=== PATIENT | female | born 1945 | race Caucasian/White ===

== ENCOUNTER → 2017-06-05 | Outpatient (CLI) | payer MEDICARE ==
[~2017-06-05] MED LIST: DESIPRAMINE HCL10 MG PO; KEFLEX500 MG PO; MELOXICAN PO; VALIUM5 MG; Z PREMPRO PO; Z.1.DIOVAN HCT 1601 PO; [UNRECOGNIZED DRUG - OTHER] PO; [UNRECOGNIZED DRUG - OTHER] PO
--- NOTE | 2017-06-14 16:31 | Diagnostic Imaging Report ---
#[id number] - MGSCRBIL #BILATERAL DIGITAL SCREENING MAMMOGRAM WITH CAD: 06/05/2017 CLINICAL: Routine screening. Comparison is made to exams dated: 03/15/2016 mammogram and 01/11/2015 mammogram - [facility]. Current study contains 4 films. There are scattered fibroglandular elements in both breasts. Current study was also evaluated with a Computer Aided Detection (CAD) system. There are benign calcifications in both breasts. There also are benign lymph nodes in both breasts. No significant masses, calcifications, or other findings are seen in either breast. There has been no significant interval change. IMPRESSION: BENIGN There is no mammographic evidence of malignancy. A 1 year screening mammogram is recommended. The patient will be notified by letter of the results. Jose Roberto guthrie/gideon:06/14/2017 08:41:08 Metal Molder: Alicia HARGROVE)(Néstor), [facility] letter sent: Compared to Prior B9 Mammogram BI-RADS: 2 Benign
== END ==
LOC: MAMMO 09:06
PROVIDERS: ATTEND Family Medicine
DX: Z12.31 Encounter for screening mammogram for malignant neoplasm of breast (principal)
CPT/HCPCS: 77067

== ENCOUNTER → 2018-02-21 | Outpatient (CLI) | payer MEDICARE ==
--- NOTE | 2018-02-21 11:35 | Diagnostic Imaging Report ---
EXAM: CT Chest WITHOUT contrast INDICATION: Shortness of breath COMPARISON: None. TECHNIQUE: The Chest was scanned utilizing a multidetector helical scanner without the use of IV contrast. Coronal and sagittal reformations were obtained. IV CONTRAST: None COMPLICATIONS: None RADIATION DOSE: Total DLP: 440 mGy*cm Estimated effective dose: (DLP x 0.015 x size factor) mSv CTDIvol has been reviewed. It is below the limits set by the Radiation Protocol Committee (RPC). Appropriate CT dose reduction techniques were utilized. FINDINGS: Lines and Tubes: None. Lower Neck: No acute findings. Heart and Great Vessels: The aorta and main pulmonary artery measure 35 and 25 mm. respectively. No pericardial effusion. No significant coronary artery vascular calcifications. Normal origin. There is a coarse/bulky calcification along the inferior aspect of the heart in the region of the right atrioventricular junction, nonspecific, but statistically benign. AP diameter left atrium 51 mm. Lymph Nodes: No enlarged mediastinal lymph nodes present. The hilar regions are sub-optimally evaluated given lack of IV contrast. Lungs: No pneumothorax or pleural effusion present. Moderate respiratory motion in the lung bases limits evaluation. Mild groundglass opacities medial aspect right lower lobe adjacent to prominent osteophytes consistent with benign friction phenomenon. Minimal atelectasis/scarring right middle lobe and lingula. There are a few tiny pleural nodules statistically benign. Trachea and central bronchi are unremarkable. Upper abdomen: There is questionable increased density of the liver, which can be seen in the setting of chronic liver disease or amiodarone toxicity. 13 mm partially peripherally calcified splenic artery aneurysm present. Bones and Soft Tissues: Moderate degenerative changes spine. IMPRESSION: 1. No definite acute finding within the chest. 2. Prominent left atrium. Echocardiogram could be obtained for further evaluation. 3. Increased density of the liver as detailed above. 4. Please see above for full details/other findings. Signed by: Dr. Cj Gómez MD on 02/21/2018 11:32 AM
== END ==
LOC: RESP 10:30
PROVIDERS: ATTEND Internal Medicine
DX: R06.09 Other forms of dyspnea (principal)
CPT/HCPCS: 71250; 94060; 94727; 94729

== ENCOUNTER → 2018-02-24 | Outpatient (CLI) | payer MEDICARE ==
[~2018-02-24] MED LIST changes: +IOPAMIDOL 370 MG/ML 200 ML INFUS..BTL INJ ONE; +SODIUM CHLORIDE 0.9% 100 ML 100 ML ONE
[2018-02-24 10:12] LABS: BLOOD UREA NITROGEN 21 mg/dL (7-26); BUN/CREATININE RATIO 24 (6-25); CREATININE, SERUM 0.88 mg/dL (0.57-1.11); EST GLOMERULAR FILTRATION RATE > 60 ML/MIN (60-)
--- NOTE | 2018-02-24 12:35 | Diagnostic Imaging Report ---
ABDOMINOPELVIC CT WITH CTA RUNOFF PROTOCOL WITH IV CONTRAST. 3D post-processing of the images was performed, and the post-processed images were used in interpretation. COMPARISON: CT Abdomen/Pelvis 07/24/2010 RADIATION DOSE: Dose length product: 737.6 mGycm CONTRAST: 100 cc of Isovue 370. FINDINGS: VESSELS: No significant atherosclerotic changes in the abdominal aorta or branch vessels. There is no evidence of a flap within the aorta to suggest a dissection. No evidence of abdominal aortic aneurysm. The abdominal aorta at the diaphragmatic hiatus measures up to 1.8 cm, suprarenal abdominal aorta measures 1.6 cm, and infrarenal abdominal aorta measures 1.4 cm. The celiac artery, superior mesenteric artery, and inferior mesenteric artery are patent. There is a 1.2 cm distal left splenic artery aneurysm. There is a single right renal artery and a single left renal artery, both of which are patent. Bilateral lower extremities: The bilateral common femoral arteries, superficial femoral arteries, and right popliteal artery are patent. Limited evaluation of the left popliteal artery secondary to streak artifact from left knee arthroplasty. Patent bilateral three-vessel runoff to the level of the ankle. The vessels are not well visualized beyond the ankle into the foot. No atherosclerotic changes are visualized. NON VASCULAR FINDINGS: LINES and TUBES: None. LOWER THORAX: Unchanged 3 mm subpleural right middle lobe nodular opacity since 2010. Again noted is a coarse calcification along the inferior aspect of the heart. Left atrial enlargement measuring up to 4.7 cm. HEPATOBILIARY: No focal hepatic lesions. No biliary ductal dilation. GALLBLADDER: No radio-opaque stones or sludge. No wall thickening. SPLEEN: No splenomegaly. PANCREAS: No focal masses or ductal dilatation. ADRENALS: No adrenal nodules KIDNEYS/URETERS: Kidneys enhance symmetrically. No hydronephrosis. No cystic or solid mass lesions. No stones. GI TRACT: No abnormal distention, wall thickening, or evidence of bowel obstruction. LYMPH NODES: No lymphadenopathy. PERITONEUM / RETROPERITONEUM: No free air or fluid. 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 No acute osseous abnormality. Severe degenerative changes of the left hip. Moderate lumbar spine degenerative changes. Grade 1 anterolisthesis of L4 on L5. IMPRESSION: Patent vasculature of the abdomen and bilateral lower extremities. Non-visualization of bilateral runoff vessels below the lower leg/ankle, which may represent phase of contrast. No atherosclerotic changes are visualized. No evidence of aortic dissection or aneurysm. A 1.2 cm distal splenic artery aneurysm. Follow-up abdominal CTA is suggested in 12 months to assess for stability. Signed by: Dr. Jeannie Lin MD on 02/24/2018 12:32 PM
== END ==
LOC: CT 09:21
PROVIDERS: ATTEND Internal Medicine Interventional Cardiology
DX: I73.9 Peripheral vascular disease, unspecified (principal)
CPT/HCPCS: 36415; 75635; 82565; 84520; Q9967

== ENCOUNTER → 2018-07-10 | Outpatient (CLI) | payer MEDICARE ==
[~2018-07-10] MED LIST changes: -IOPAMIDOL 370 MG/ML 200 ML INFUS..BTL INJ ONE; -SODIUM CHLORIDE 0.9% 100 ML 100 ML ONE
== END ==
LOC: MAMMO 07:59
PROVIDERS: ATTEND Family Medicine
DX: Z12.31 Encounter for screening mammogram for malignant neoplasm of breast (principal)
CPT/HCPCS: 77067

== ENCOUNTER → 2018-08-22 | Outpatient (CLI) | payer MEDICARE ==
--- NOTE | 2018-08-25 08:27 | Diagnostic Imaging Report ---
#[id number] - USBRELIMLT ULTRASOUND OF THE LEFT BREAST : 08/22/2018 Comparison is made to exams dated: 08/22/2018 mammogram and 07/10/2018 mammogram - [facility]. Color flow and real-time ultrasound were performed on the left breast with scanning from 9 o'clock to 3 o'clock. -No cystic or solid mass is identified. IMPRESSION: NEGATIVE There is no sonographic evidence of malignancy. A 1 year screening mammogram is recommended. Jose Roberto Grant Jr., D.O. cw/:08/22/2018 10:05:24 Engineer Process: Andreina Corcoran RDMS, [facility] letter sent: Normal Exam Ultrasound BI-RADS: 1 Negative
--- NOTE | 2018-08-25 08:27 | Diagnostic Imaging Report ---
#[id number] - MGDXLT #UNILATERAL LEFT DIGITAL DIAGNOSTIC MAMMOGRAM WITH SPOT COMPRESSION: 08/22/2018 Comparison is made to exams dated: 07/10/2018 mammogram and 06/05/2017 mammogram - [facility]. Current study contains 3 films. There are scattered fibroglandular elements in the left breast. The possible nodule at 12 o'clock appears to persist on the CC view. For this reason, targeted ultrasound is recommended and will be performed today. No significant masses, calcifications, or other findings are seen in the breast. IMPRESSION: INCOMPLETE: NEEDS ADDITIONAL IMAGING EVALUATION Ill defined nodule appears to persist on the CC view. Ultrasound is recommended and will follow this study. Jose Roberto Grant Jr., D.O. cw/:08/22/2018 10:12:29 Customer Service Leader: Alicia TOMAS(Ernie)(Néstor), [facility] letter sent: Additional Imaging Needed Mammogram BI-RADS: 0 Indeterminate
== END ==
LOC: MAMMO 07:55
PROVIDERS: ATTEND Family Medicine

== ENCOUNTER → 2019-11-06 | Outpatient (CLI) | payer MEDICARE | LOC: MAMMO 08:46 | PROVIDERS: ATTEND Family Medicine | DX: Z12.31 Encounter for screening mammogram for malignant neoplasm of breast (principal) | CPT/HCPCS: 77067 ==

== ENCOUNTER → 2020-12-08 | Outpatient (CLI) | payer MEDICARE | LOC: MAMMO 12:29 | PROVIDERS: ATTEND Family Medicine | DX: Z12.31 Encounter for screening mammogram for malignant neoplasm of breast (principal) | CPT/HCPCS: 77066; 77067 ==

== ENCOUNTER → 2021-12-19 | Outpatient (CLI) | payer MEDICARE | LOC: MAMMO 10:08 | PROVIDERS: ATTEND Family Medicine | DX: Z12.31 Encounter for screening mammogram for malignant neoplasm of breast (principal) | CPT/HCPCS: 77067 ==

== ENCOUNTER → 2022-01-04 | Outpatient (CLI) | payer MEDICARE | LOC: MAMMO 10:01 | PROVIDERS: ATTEND Family Medicine | DX: R92.8 Other abnormal and inconclusive findings on diagnostic imaging of breast (principal) ==

== ENCOUNTER → 2022-03-12 | Day surgery (SDC) | payer MEDICARE ==
[2022-03-06 09:51] LABS: BASOPHILS % 0.6 % (0.0-1.0); EOSINOPHILS # (AUTO) 0.1 (0.0-0.4); EOSINOPHILS % 2.2 % (0.0-6.0); HEMATOCRIT 37.2 % (34.2-44.1); HEMOGLOBIN 11.3 g/dL (12.0-16.0); LYMPHOCYTES # (AUTO) 1.5 (1.0-3.2); LYMPHOCYTES % 27.3 % (18.0-39.1); MEAN CORPUSCULAR HGB CONC 30.4 g/dL (31-35); MEAN CORPUSCULAR VOLUME 92.3 fL (81-99); MONOCYTES # (AUTO) 0.4 (0.2-0.8); MONOCYTES % 7.4 % (4.4-11.3); NEUTROPHILS # (AUTO) 3.4 (2.1-6.9); NEUTROPHILS % 62.1 % (38.7-80.0); PLATELET COUNT 272 x10e3/uL (140-360); RED BLOOD COUNT 4.03 x10e6/uL (3.6-5.1); RED CELL DISTRIBUTION WIDTH 13.3 % (11.7-14.4)
[~2022-03-12] MED LIST changes: +ASPIRIN81 MG PO; +DAILY VITAMIN1 EAC4 PO; +ELIQUIS5 MG PO; +ENTRESTO 24 MG1 EACH PO; +EYE VITAMIN PO; +FUROSEMIDE40 MG PO; +LIDOCAINE HCL 2% LOCAL INJ 5 ML SDV VIAL INJ ONE; +METOCLOPRAMIDE HCL 10 MG/2ML VIAL ONE; +PROPOFOL IV EMULSION 10 MG/ML 20 ML VIAL ONE
[2022-03-12 09:45] VITALS: BP 148/73
== END | disposition home or self-care (01) ==
LOC: OR 08:17
PROVIDERS: ATTEND Internal Medicine Gastroenterology
DX: R15.2 Fecal urgency (principal); K63.3 Ulcer of intestine; K59.09 Other constipation; K62.89 Other specified diseases of anus and rectum; K57.30 Diverticulosis of large intestine without perforation or abscess without bleeding; K64.8 Other hemorrhoids; Z71.3 Dietary counseling and surveillance; I48.91 Unspecified atrial fibrillation; I44.0 Atrioventricular block, first degree; I10 Essential (primary) hypertension; Z88.2 Allergy status to sulfonamides; Z01.810 Encounter for preprocedural cardiovascular examination; Z01.812 Encounter for preprocedural laboratory examination; Z79.02 Long term (current) use of antithrombotics/antiplatelets; Z79.82 Long term (current) use of aspirin; Z79.899 Other long term (current) drug therapy; Z68.27 Body mass index [BMI] 27.0-27.9, adult
CPT/HCPCS: 36415; 45380; 83630; 83993; 85025; 86140; 87045; 87177; 87324; 87328; 87449; 88305; 93005; J2001; J2704; J2765; 45378

== ENCOUNTER → 2023-01-03 | Day surgery (SDC) | payer MEDICARE ==
[2023-01-01 14:17] LABS: BASOPHILS % 0.5 % (0.0-1.0); EOSINOPHILS # (AUTO) 0.1 (0.0-0.4); EOSINOPHILS % 2.6 % (0.0-6.0); HEMATOCRIT 33.8 % (34.2-44.1); HEMOGLOBIN 11.2 g/dL (12.0-16.0); LYMPHOCYTES # (AUTO) 1.5 (1.0-3.2); LYMPHOCYTES % 27.7 % (18.0-39.1); MEAN CORPUSCULAR HEMOGLOBIN 28.4 pg (28-32); MEAN CORPUSCULAR HGB CONC 33.1 g/dL (31-35); MEAN CORPUSCULAR VOLUME 85.8 fL (81-99); MONOCYTES # (AUTO) 0.5 (0.2-0.8); MONOCYTES % 8.6 % (4.4-11.3); NEUTROPHILS # (AUTO) 3.3 (2.1-6.9); NEUTROPHILS % 60.4 % (38.7-80.0); PLATELET COUNT 255 x10e3/uL (140-360); RED BLOOD COUNT 3.94 x10e6/uL (3.6-5.1); RED CELL DISTRIBUTION WIDTH 13.6 % (11.7-14.4); WHITE BLOOD COUNT 5.49 x10e3/uL (4.8-10.8)
[~2023-01-03] MED LIST changes: +IOPAMIDOL 200 MG/ML 20 ML VIAL IT ONE; +LACTATED RINGER'S 1,000 ML ONE; +LIDOCAINE HCL 1% 30ML-PF VIAL ONE; -METOCLOPRAMIDE HCL 10 MG/2ML VIAL ONE; +METOPROLOL SUCC50 MG PO; +PHENYLEPHRINE HCL 1% 10 MG/ML VIAL ONE; +TRIAMCINOLONE ACET 40 MG/ML VIAL ONE
[2023-01-03 09:00] VITALS: BP 114/61; PULSE 67; RESP 18; O2SAT 99
== END | disposition home or self-care (01) ==
LOC: OR 06:33
PROVIDERS: ATTEND Physical Medicine & Rehabilitation Pain Medicine
DX: M47.896 Other spondylosis, lumbar region (principal); M54.16 Radiculopathy, lumbar region; M48.061 Spinal stenosis, lumbar region without neurogenic claudication; R93.7 Abnormal findings on diagnostic imaging of other parts of musculoskeletal system; I10 Essential (primary) hypertension; R01.1 Cardiac murmur, unspecified; I49.9 Cardiac arrhythmia, unspecified; Z88.2 Allergy status to sulfonamides; Z01.812 Encounter for preprocedural laboratory examination; Z79.02 Long term (current) use of antithrombotics/antiplatelets; Z79.82 Long term (current) use of aspirin; Z79.899 Other long term (current) drug therapy
CPT/HCPCS: 36415; 64493; 64494; 64495; 85025; J2001 ×2; J2371; J2704; J3301; J7121; Q9967; 77002

== ENCOUNTER → 2023-01-08 | Outpatient (REF) | payer MEDICARE ==
[~2023-01-08] MED LIST changes: -IOPAMIDOL 200 MG/ML 20 ML VIAL IT ONE; -LACTATED RINGER'S 1,000 ML ONE; -LIDOCAINE HCL 1% 30ML-PF VIAL ONE; -LIDOCAINE HCL 2% LOCAL INJ 5 ML SDV VIAL INJ ONE; -PHENYLEPHRINE HCL 1% 10 MG/ML VIAL ONE; -PROPOFOL IV EMULSION 10 MG/ML 20 ML VIAL ONE; -TRIAMCINOLONE ACET 40 MG/ML VIAL ONE
== END ==
LOC: MAMMO 08:59
PROVIDERS: ATTEND Family Medicine
DX: Z12.31 Encounter for screening mammogram for malignant neoplasm of breast (principal)
CPT/HCPCS: 77067

== ENCOUNTER → 2023-07-02 | Outpatient (RCR) | payer MEDICARE | LOC: PT 06-24 08:25 | PROVIDERS: ATTEND Pain Medicine Pain Medicine | DX: M54.16 Radiculopathy, lumbar region (principal) ==

== ENCOUNTER → 2024-01-02 | Outpatient (RCR) | payer MEDICARE | LOC: PT 12-19 10:33 | PROVIDERS: ATTEND Neurological Surgery | DX: M43.16 Spondylolisthesis, lumbar region (principal); M54.50 Low back pain, unspecified; M62.81 Muscle weakness (generalized); M43.26 Fusion of spine, lumbar region ==

== ENCOUNTER → 2024-01-16 | Outpatient (REF) | payer MEDICARE | LOC: MAMMO 09:13 | PROVIDERS: ATTEND Family Medicine | DX: Z12.31 Encounter for screening mammogram for malignant neoplasm of breast (principal) | CPT/HCPCS: 77067 ==

== ENCOUNTER → 2024-02-18 | Outpatient (REF) | payer MEDICARE | LOC: MAMMO 08:31 | PROVIDERS: ATTEND Family Medicine | DX: R92.30 Dense breasts, unspecified (principal) ==

== ENCOUNTER → 2024-03-03 | Outpatient (RCR) | payer MEDICARE | LOC: PT 02-03 07:31 | PROVIDERS: ATTEND Neurological Surgery | DX: M43.16 Spondylolisthesis, lumbar region (principal); M54.50 Low back pain, unspecified; M62.81 Muscle weakness (generalized) ==

== ENCOUNTER → 2024-03-11 | Outpatient (REF) | payer MEDICARE | LOC: US 09:04 | PROVIDERS: ATTEND Family Medicine | DX: R92.8 Other abnormal and inconclusive findings on diagnostic imaging of breast (principal) | CPT/HCPCS: 88305 ==

== ENCOUNTER 2024-04-02 08:00 | Outpatient (RCR) | payer MEDICARE | END 2024-04-03 | LOC: PT 08:00 | PROVIDERS: ATTEND Neurological Surgery | DX: M43.16 Spondylolisthesis, lumbar region (principal); M54.50 Low back pain, unspecified; M62.81 Muscle weakness (generalized); M48.26 Kissing spine, lumbar region ==

== ENCOUNTER 2024-04-09 08:00 | Outpatient (RCR) | payer MEDICARE ==
[2024-04-13] MEDS ORDERED: TRAZODONE HCL50 MG PO (16:16)
[2024-04-13] MEDS ORDERED: B12 COMPLEX PO (16:16)
[2024-04-13] MEDS ORDERED: PROBIOTIC & AC1 EACH PO (16:16)
== END 2024-05-01 ==
LOC: PT 08:00
PROVIDERS: ATTEND Neurological Surgery
DX: M54.50 Low back pain, unspecified (principal); M43.16 Spondylolisthesis, lumbar region

== ENCOUNTER 2024-04-17 08:28 | Observation (INO) | payer MEDICARE ==
[2024-04-14 11:01] LABS: BASOPHILS % 0.8 % (0.0-1.0); EOSINOPHILS # (AUTO) 0.1 (0.0-0.4); EOSINOPHILS % 2.5 % (0.0-6.0); HEMATOCRIT 37.2 % (34.2-44.1); HEMOGLOBIN 12.6 g/dL (12.0-16.0); LYMPHOCYTES # (AUTO) 1.4 (1.0-3.2); LYMPHOCYTES % 29.1 % (18.0-39.1); MEAN CORPUSCULAR HEMOGLOBIN 30.7 pg (28-32); MEAN CORPUSCULAR HGB CONC 33.9 g/dL (31-35); MEAN CORPUSCULAR VOLUME 90.7 fL (81-99); MONOCYTES # (AUTO) 0.4 (0.2-0.8); MONOCYTES % 7.6 % (4.4-11.3); NEUTROPHILS # (AUTO) 2.8 (2.1-6.9); NEUTROPHILS % 59.8 % (38.7-80.0); PLATELET COUNT 240 x10e3/uL (140-360); RED CELL DISTRIBUTION WIDTH 12.8 % (11.7-14.4); WHITE BLOOD COUNT 4.71 x10e3/uL (4.8-10.8)
[2024-04-14 11:03] LABS: ALBUMIN 4.2 g/dL (3.5-5.0); ALBUMIN/GLOBULIN RATIO 1.4 (0.8-2.0); ANION GAP 12.6 mmol/L (8-16); BILIRUBIN,TOTAL 1.8 mg/dL (0.2-1.2); CALCIUM 9.6 mg/dL (8.4-10.2); CREATININE, SERUM 0.96 mg/dL (0.57-1.11); POTASSIUM 3.6 mmol/L (3.5-5.1); TOTAL PROTEIN 7.1 g/dL (6.5-8.1)
[~2024-04-17] VITALS: Ht 149.9 cm; Wt 58.5 kg
[~2024-04-17 08:28] MED LIST changes: +B12 COMPLEX PO; +PROBIOTIC & AC1 EACH PO; +TRAZODONE HCL50 MG PO
[2024-04-17] MEDS: LACTATED RINGER'S 1,000 ML ONE (10:21)
[2024-04-17] MEDS ORDERED: FENTANYL CITRATE/PF 100MCG/2 ML INJ ONE (12:01)
[2024-04-17] MEDS ORDERED: MIDAZOLAM HCL 2 MG/2 ML VIAL ONE (12:01)
[2024-04-17] MEDS ORDERED: PROPOFOL IV EMULSION 10 MG/ML 20 ML VIAL ONE (12:01)
[2024-04-17] MEDS ORDERED: SEVOFLURANE INHAL SOLN 250 ML PEN BTL ONE (12:01)
[2024-04-17] MEDS ORDERED: LIDOCAINE HCL 2% LOCAL INJ 5 ML SDV VIAL INJ ONE (12:01)
[2024-04-17] MEDS ORDERED: ACETAMINOPHEN 1000 MG/100 ML 100 ML IV ONE (15:22)
[2024-04-17] MEDS ORDERED: HYDROMORPHONE 2MG/ML ONE (16:58)
[2024-04-17] MEDS ORDERED: LABETALOL HCL 20 ML ONE (16:58)
[2024-04-17] MEDS ORDERED: SUGAMMADEX SODIUM 200 MG/2 ML VIAL IV ONE (17:39)
[2024-04-17] MEDS ORDERED: ONDANSETRON HCL INJ 2MG/ML 2ML 2 MG/ML VIAL ONE (17:39)
[2024-04-17] MEDS ORDERED: HYDROMORPHONE 1MG/1ML INJ IV PRN (18:15)
[2024-04-17] MEDS ORDERED: ACETAMINOPHEN 1000 MG/100 ML IV PRN (18:15)
[2024-04-17] MEDS ORDERED: ONDANSETRON HCL INJ 2MG/ML 2ML 2 MG/ML VIAL IV PRN (18:15)
[2024-04-17 20:00] VITALS: BP 144/72; PULSE 73; RESP 18; TEMP 97.8; O2SAT 99
[2024-04-17] MEDS: SODIUM CHLORIDE 0.9% 1000ML 1,000 ML IV SCH (21:26)
[2024-04-17] MEDS: TRAZODONE HCL 50 MG TAB PO SCH (21:26)
[2024-04-17] MEDS: HYDROCODONE/APAP 5MG-325MG TAB PO PRN (21:26)
[2024-04-17] MEDS: METOPROLOL SUCCINATE 50 MG TAB XL PO SCH (21:26)
[2024-04-18] VITALS: BP 136/62; PULSE 83; RESP 18; TEMP 98.2; O2SAT 97
[2024-04-18] MEDS: DESIPRAMINE PO SCH (08:05)
[2024-04-18 08:21] LABS: BASOPHILS % 0.3 % (0.0-1.0); EOSINOPHILS % 0.5 % (0.0-6.0); HEMATOCRIT 31.4 % (34.2-44.1); HEMOGLOBIN 10.6 g/dL (12.0-16.0); LYMPHOCYTES % 12.5 % (18.0-39.1); MEAN CORPUSCULAR HEMOGLOBIN 30.4 pg (28-32); MEAN CORPUSCULAR HGB CONC 33.8 g/dL (31-35); MONOCYTES # (AUTO) 0.7 (0.2-0.8); MONOCYTES % 8.8 % (4.4-11.3); NEUTROPHILS # (AUTO) 6.2 (2.1-6.9); NEUTROPHILS % 77.4 % (38.7-80.0); PLATELET COUNT 208 x10e3/uL (140-360); RED BLOOD COUNT 3.49 x10e6/uL (3.6-5.1); WHITE BLOOD COUNT 7.97 x10e3/uL (4.8-10.8)
[2024-04-18 08:24] VITALS: BP 124/53; PULSE 76; RESP 16; TEMP 98.2; O2SAT 99
[2024-04-18 08:32] VITALS: BP 124/53; PULSE 76; RESP 16; TEMP 98.2; O2SAT 99
[2024-04-18 08:33] LABS: ANION GAP 15.7 mmol/L (8-16); CREATININE, SERUM 1.03 mg/dL (0.57-1.11); POTASSIUM 3.7 mmol/L (3.5-5.1)
[2024-04-18 11:10] VITALS: BP 120/60; PULSE 77; RESP 15; TEMP 99.6; O2SAT 99
== END 2024-04-18 14:46 | disposition home or self-care (01) ==
LOC: OR 08:28 → PACU V 15:43 → MED/SURG 18:45
PROVIDERS: ADMIT Surgery; ATTEND Surgery
DX: C50.112 Malignant neoplasm of central portion of left female breast (principal); I10 Essential (primary) hypertension
CPT/HCPCS: 19303; 36415 ×2; 38500; 38792; 71046; 78195; 80048; 80053; 85025 ×2; 88307; 88342; 93005; A9520; G0378 ×2; J0131; J0690 ×2; J1170; J2003; J2405; J2704; J3010; J3490; J7030 ×2; J7121; 88309; J2250